=== PATIENT | male | born 1960 | race Caucasian/White ===

== ENCOUNTER 2020-05-27 12:20 | Inpatient (IN) | payer MEDICAID ==
[~2020-05-27] VITALS: Ht 175.3 cm; Wt 86.9 kg
[2020-05-27 13:10] VITALS: BP 113/70
[2020-05-27] MEDS ORDERED: METHYL SALICYLATE/MENTHOL TOPICAL OINTMENT 57GM TUBE. TP PRN (13:15)
[2020-05-27] MEDS ORDERED: MAGNESIUM HYDROXIDE 2,400 MG/30 ML ORAL.SUSP. PO PRN (13:15)
[2020-05-27] MEDS ORDERED: MAG HYDROX/AL HYDROX/SIMETH 30 ML ORAL.SUSP PO PRN (13:15)
[2020-05-27] MEDS ORDERED: ACETAMINOPHEN 325 MG TABLET PO PRN (13:15)
[2020-05-27] MEDS ORDERED: METO25TA4 PO (13:27)
[2020-05-27] MEDS ORDERED: ESCITALOPRAM OX20 MG PO (13:27)
[2020-05-27] MEDS ORDERED: CLOP75TA PO (13:27)
[2020-05-27] MEDS ORDERED: LURA20TA PO (13:27)
[2020-05-27] MEDS ORDERED: ASCO500C9 PO (13:27)
[2020-05-27] MEDS ORDERED: TRAZ-125 PO (13:27)
[2020-05-27] MEDS ORDERED: VALP250S3 PO (13:27)
[2020-05-27] MEDS ORDERED: GABA-586 PO (13:27)
[2020-05-27] MEDS ORDERED: LISI40TA6 PO (13:27)
[2020-05-27] MEDS ORDERED: HYDR-2765 PO (13:27)
[2020-05-27] MEDS ORDERED: MULT-471 PO (13:27)
[2020-05-27] MEDS ORDERED: TAMS0.4C97 PO (13:27)
[2020-05-27 16:11] VITALS: BP 155/71
[2020-05-27 16:56] LABS: BASO # 0.1 x10^3/uL (0.0-0.2); BASO % 1 % (0-3); EOS # 0.3 x10^3/uL (0.0-0.7); EOS % 3 % (0-3); HEMATOCRIT 43.5 % (39.0-53.0); HEMOGLOBIN 14.2 g/dL (13.0-17.5); LYMPH % 18 % (24-48); MEAN CORPUSCULAR HEMOGLOBIN 30 pg (25-35); MEAN CORPUSCULAR HGB CONC 33 g/dL (31-37); MEAN CORPUSCULAR VOLUME 93 fL (79-100); MONO % 9 % (0-9); NEUT # 7.7 x10^3uL (1.8-7.7); NEUT % 70 % (31-73); PLATELET COUNT 270 x10^3/uL (140-400); RED BLOOD COUNT 4.68 x10^6/uL (4.30-5.70); WHITE BLOOD COUNT 11.1 x10^3/uL (4.0-11.0)
--- NOTE | 2020-05-27 17:02 | EKG ---
[address] [address] Test Date: 2020-05-27 Test Time: 17:01:21 Pat Name: DAWNA HERNANDEZ Department: Room: [address] [place] [address] Gender: M Cleaner Assistant: : 1960 Requested By: CHRIS TORRES Order Number: [id number] Reading MD: Measurements Intervals Craig Rate: P: HI: QRS: QRSD: T: QT: QTc: Interpretive Statements
[2020-05-27 17:05] LABS: ALBUMIN 3.3 g/dL (3.4-5.0); ALBUMIN/GLOBULIN RATIO 0.8 (1.0-1.7); CALCIUM 9.8 mg/dL (8.5-10.1); CREATININE 1.2 mg/dL (0.7-1.3); GFR 61.6; POTASSIUM 4.8 mmol/L (3.5-5.1); TOTAL BILIRUBIN 0.2 mg/dL (0.2-1.0); TOTAL PROTEIN 7.7 g/dL (6.4-8.2)
--- NOTE | 2020-05-27 20:48 | PDOC ---
Exam Note: Valerio Note: Please also refer to the separate dictated note~for this date of service dictated separately.~Patient seen individually. Discussed the patient with Nursing staff reviewed the chart.~Reviewed interim history and current functioning. Reviewed vital signs,~Labs/ Radiology~and current medications noted below. Continue current treatment with the changes noted in the dictated addendum note Assessment: Vital Signs/I&O: Vital Signs Date Time Temp Pulse Resp B/P (MAP) Pulse Ox O2 Delivery O2 Flow Rate FiO2 05/27/20 16:11 97.5 81 18 155/71 (99) 95 Room Air Labs: Laboratory Tests Test 05/27/20 16:30 White Blood Count 11.1 x10^3/uL (4.0-11.0) H Red Blood Count 4.68 x10^6/uL (4.30-5.70) Hemoglobin 14.2 g/dL (13.0-17.5) Hematocrit 43.5 % (39.0-53.0) Mean Corpuscular Volume 93 fL (79-100) Mean Corpuscular Hemoglobin 30 pg (25-35) Mean Corpuscular Hemoglobin Concent 33 g/dL (31-37) Red Cell Distribution Width 14.0 % (11.5-14.5) Platelet Count 270 x10^3/uL (140-400) Neutrophils (%) (Auto) 70 % (31-73) Lymphocytes (%) (Auto) 18 % (24-48) L Monocytes (%) (Auto) 9 % (0-9) Eosinophils (%) (Auto) 3 % (0-3) Basophils (%) (Auto) 1 % (0-3) Neutrophils # (Auto) 7.7 x10^3uL (1.8-7.7) Lymphocytes # (Auto) 2.0 x10^3/uL (1.0-4.8) Monocytes # (Auto) 1.0 x10^3/uL (0.0-1.1) Eosinophils # (Auto) 0.3 x10^3/uL (0.0-0.7) Basophils # (Auto) 0.1 x10^3/uL (0.0-0.2) D-Dimer (Izabel) 1.09 mg/L (0.00-0.50) H Sodium Level 140 mmol/L (136-145) Potassium Level 4.8 mmol/L (3.5-5.1) Chloride Level 105 mmol/L (98-107) Carbon Dioxide Level 25 mmol/L (21-32) Anion Gap 10 (6-14) Blood Urea Nitrogen 28 mg/dL (8-26) H Creatinine 1.2 mg/dL (0.7-1.3) Estimated GFR (Cockcroft-Gault) 61.6 BUN/Creatinine Ratio 23 (6-20) H Glucose Level 151 mg/dL (70-99) H Calcium Level 9.8 mg/dL (8.5-10.1) Magnesium Level 2.0 mg/dL (1.8-2.4) Total Bilirubin 0.2 mg/dL (0.2-1.0) Aspartate Amino Transferase (AST) 11 U/L (15-37) L Alanine Aminotransferase (ALT) 26 U/L (16-63) Alkaline Phosphatase 107 U/L (46-116) Total Protein 7.7 g/dL (6.4-8.2) Albumin 3.3 g/dL (3.4-5.0) L Albumin/Globulin Ratio 0.8 (1.0-1.7) L Current Medications: Meds: Laboratory Tests Test 05/27/20 16:30 White Blood Count 11.1 x10^3/uL Red Blood Count 4.68 x10^6/uL Hemoglobin 14.2 g/dL Hematocrit 43.5 % Mean Corpuscular Volume 93 fL Mean Corpuscular Hemoglobin 30 pg Mean Corpuscular Hemoglobin Concent 33 g/dL Red Cell Distribution Width 14.0 % Platelet Count 270 x10^3/uL Neutrophils (%) (Auto) 70 % Lymphocytes (%) (Auto) 18 % Monocytes (%) (Auto) 9 % Eosinophils (%) (Auto) 3 % Basophils (%) (Auto) 1 % Neutrophils # (Auto) 7.7 x10^3uL Lymphocytes # (Auto) 2.0 x10^3/uL Monocytes # (Auto) 1.0 x10^3/uL Eosinophils # (Auto) 0.3 x10^3/uL Basophils # (Auto) 0.1 x10^3/uL D-Dimer (Izabel) 1.09 mg/L Sodium Level 140 mmol/L Potassium Level 4.8 mmol/L Chloride Level 105 mmol/L Carbon Dioxide Level 25 mmol/L Anion Gap 10 Blood Urea Nitrogen 28 mg/dL Creatinine 1.2 mg/dL Estimated GFR (Cockcroft-Gault) 61.6 BUN/Creatinine Ratio 23 Glucose Level 151 mg/dL Calcium Level 9.8 mg/dL Magnesium Level 2.0 mg/dL Total Bilirubin 0.2 mg/dL Aspartate Amino Transf (AST/SGOT) 11 U/L Alanine Aminotransferase (ALT/SGPT) 26 U/L Alkaline Phosphatase 107 U/L Total Protein 7.7 g/dL Albumin 3.3 g/dL Albumin/Globulin Ratio 0.8 Current Medications Medications (Trade) Dose Ordered Sig/Radha Route PRN Reason Start Time Stop Time Status Last Admin Dose Admin Acetaminophen (Tylenol) 650 mg PRN Q6HRS PRN PO MILD PAIN / TEMP > 100.3'F 05/27/20 13:15 Multi-Ingredient Ointment (Analgesic [place]) 1 prateek PRN QID PRN TP MUSCLE PAIN 05/27/20 13:15 Al Hydroxide/Mg Hydroxide (Mylanta Plus Xs) 15 ml PRN AFTMEALHC PRN PO DYSPEPSIA 05/27/20 13:15 Magnesium Hydroxide (Milk Of Magnesia) 2,400 mg PRN QHS PRN PO CONSTIPATION 05/27/20 13:15 Nicotine (Nicoderm Cq 7mg Patch) 1 patch DAILY TD 05/28/20 09:00 Clopidogrel Bisulfate (Plavix) 75 mg DAILY PO 05/28/20 09:00 UNV Gabapentin (Neurontin) 300 mg TID PO 05/27/20 21:00 UNV Acetaminophen/ Hydrocodone Bitart (Lortab 7.5/325) 1 tab PRN Q6HRS PRN PO PAIN 05/27/20 20:45 UNV Metoprolol Tartrate (Lopressor) 25 mg BID PO 05/27/20 21:00 UNV Tamsulosin HCl (Flomax) 0.4 mg DAILY PO 05/28/20 09:00 UNV Trazodone HCl (Desyrel) 100 mg QHS PO 05/27/20 21:00 UNV Non-Formulary Medication (Ascorbic Acid (Vitamin C)) 500 mg BID PRN PO daily 05/27/20 20:45 UNV Non-Formulary Medication (Escitalopram Oxalate ) 20 mg DAILY PO 05/28/20 09:00 UNV Non-Formulary Medication (Lisinopril ) 40 mg DAILY PO 05/28/20 09:00 UNV Non-Formulary Medication (Lurasidone Hcl (Latuda)) 20 mg DAILY PO 05/28/20 09:00 UNV Non-Formulary Medication (Multivitamin W/ Iron, Minerals (Multivitamins With Iron)) 1 tab DAILY PO 05/28/20 09:00 UNV Non-Formulary Medication (Valproate Sodium (Valproic Acid)) 250 mg QAM PO 05/28/20 09:00 UNV I have reviewed the current psychotropics carefully including drug interactions. Risk benefit ratio favors no change other than as noted in my dictated progress note. CHRIS TORRES MD May 27, 2020 20:48
[2020-05-27] MEDS: ASCORBIC ACID 500 MG TABLET PO SCH (21:17)
[2020-05-27] MEDS: METOPROLOL TART IMMED RELEASE 25 MG TABLET. PO SCH (21:17)
[2020-05-27] MEDS: GABAPENTIN 300 MG CAPSULE. PO SCH (21:17)
[2020-05-27] MEDS: traZODone 100 MG TABLET. PO SCH (21:17)
[2020-05-27] MEDS: HYDROcodone/APAP 7.5/325MG 1 TAB TABLET PO PRN (21:34)
[2020-05-28 02:07] LABS: HEMOGLOBIN A1C 7.5 % (4.8-5.6)
[2020-05-28 03:07] LABS: THYROXINE 6.7 ug/dL (4.5-12.0)
[2020-05-28 06:21] VITALS: BP 120/46
[2020-05-28 07:03] LABS: BILIRUBIN,URINE NEG (NEG); CLARITY,URINE TURBID; COLOR,URINE YELLOW; GLUCOSE,URINE NEG (NEG)
[2020-05-28 07:04] LABS: BACTERIA,URINE MANY /HPF (0-FEW); NITRITE,URINE NEG (NEG); SQUAMOUS EPITHELIAL CELL,UR OCC /LPF; UROBILINOGEN,URINE 0.2 mg/dL (0.2 mg/dL); WBC,URINE 20-40 /HPF (0-4)
[2020-05-28] MEDS: LURASIDONE 40 MG TABLET. PO SCH (10:43)
[2020-05-28] MEDS: TAMSULOSIN 0.4 MG CAP.ER.24H. PO SCH (10:48)
[2020-05-28] MEDS: NICOTINE 7MG PATCH. TD SCH (10:48)
[2020-05-28] MEDS: GABAPENTIN 300 MG CAPSULE. PO SCH ×3 (10:48→20:04)
[2020-05-28] MEDS: VALPROIC ACID 250 MG CAPSULE. PO SCH (10:48)
[2020-05-28] MEDS: ASCORBIC ACID 500 MG TABLET PO SCH ×2 (10:48→20:04)
[2020-05-28] MEDS: LISINOPRIL 20 MG TABLET PO SCH (10:49)
[2020-05-28] MEDS: MULTIVITAMIN with MINERAL TABLET. PO SCH (10:49)
[2020-05-28] MEDS: METOPROLOL TART IMMED RELEASE 25 MG TABLET. PO SCH ×2 (10:49→20:05)
[2020-05-28] MEDS: CITALOPRAM 20 MG TABLET. PO SCH (10:49)
[2020-05-28] MEDS: CLOPIDOGREL BISULFATE 75 MG TABLET PO SCH (10:49)
--- NOTE | 2020-05-28 11:32 | CONS ---
DATE OF CONSULTATION: 05/28/2020 ATTENDING PHYSICIANS: Dr. Delgado and Dr. Ibarra. HISTORY OF PRESENT ILLNESS: We are asked to see this patient for medical consultation. The patient is a 59-year-old gentleman, currently a long term resident in [facility] in [place]. He has had suicidal ideations of wanting to kill himself, but no obvious plans. He has underlying bipolar disorder. He was sent here for evaluation and adjustment of medication. PAST MEDICAL HISTORY: He has significant peripheral vascular disease. He has a right fface-[id number]-[id number] amputation. He also has amputation of the second, third and fourth finger of the right hand and significant peripheral vascular disease with previous femoral artery bypass of the left leg. He also has type 2 diabetes, hypertension, and dysphagia along with COPD. He had been a smoker. ALLERGIES: HE HAS ALLERGIES TO CODEINE, EXACT REACTION IS UNCLEAR. MEDICATIONS: Current medicines from the long term include vitamin C, Plavix, Lexapro, Neurontin, hydrocodone, lisinopril, Latuda, metoprolol, multivitamin, Flomax, trazodone and Depakote. SOCIAL HISTORY: Smoking history as noted. PAST SURGICAL HISTORY: As noted. FAMILY HISTORY: Unobtainable due to the patient's memory. REVIEW OF SYSTEMS: Significant for the suicidal ideation without any plan. No COVID exposure. All other systems reviewed and turned to be negative. PHYSICAL EXAMINATION: GENERAL: When I saw him, this is a pleasant gentleman in no acute distress. INITIAL VITAL SIGNS: Showed a blood pressure of 155/71 mmHg, pulse is 81 and regular, temperature 97.5 degrees Fahrenheit, oxygen saturation 94% on room air. HEENT: Head is without trauma. Pupils are reactive. Sclerae are nonicteric. The oropharynx is clear. NECK: Supple, no bruits. No stridor. LUNGS: Otherwise clear. CARDIOVASCULAR: Showed regular heart tones. No gallops. ABDOMEN: Soft, scaphoid, nontender, no organomegaly. Bowel sounds are normoactive. EXTREMITIES: Showed surgical absence of the right leg. He has a right fjyhe-[id number] amputation. The stump is clean and wound is intact. The left leg shows significant stasis dermatitis. There is decreased circulation and muscle atrophy below the ankle. SKIN: Otherwise, warm and dry. There is also surgical absence of the second, third and fourth fingers of the right hand. PERTINENT LABORATORY STUDIES: His hemoglobin on admission was 14.2 g/dL with a white count of 11,100. Electrolytes are within normal range. Creatinine is 1.2 mg/dL, nonfasting blood sugar 151 with a hemoglobin A1c of 7.5. Transaminases and liver panel all within normal range. ASSESSMENT: 1. This 59-year-old gentleman has schizoaffective disorder, bipolar issues. 2. Suicidal ideation without plans. 3. Severe peripheral vascular disease. 4. Previous ohvat-xhc-jqtj amputation of the right. 5. 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 6. Chronic obstructive pulmonary disease from tobacco addiction. 7. Type 2 diabetes. RECOMMENDATIONS: 1. The patient's meds have been reviewed. 2. He is stable from a medical standpoint. I would make no changes on his meds. 3. We should gladly follow along closely during his inpatient stay. Thank you again for asking me to see this patient for medical consultation. ALEXANDRO IBARRA MD DR: NUNO/mushtaq JOB#: [id number] / [id number]
[2020-05-28 11:54] LABS: THYROID STIM HORMONE (TSH) 1.01 uIU/mL (0.358-3.740)
[2020-05-28 16:13] VITALS: BP 109/73
[2020-05-28] MEDS: traZODone 100 MG TABLET. PO SCH (20:04)
--- NOTE | 2020-05-28 21:27 | PDOC ---
Exam Note: Valerio Note: Please also refer to the separate dictated note~for this date of service dictated separately.~Patient seen individually. Discussed the patient with Nursing staff reviewed the chart.~Reviewed interim history and current functioning. Reviewed vital signs,~Labs/ Radiology~and current medications noted below. Continue current treatment with the changes noted in the dictated addendum note Assessment: Vital Signs/I&O: Vital Signs Date Time Temp Pulse Resp B/P (MAP) Pulse Ox O2 Delivery O2 Flow Rate FiO2 05/28/20 20:05 72 110/68 05/28/20 16:13 97.4 22 98 05/28/20 06:21 Room Air I & O 05/27/20 05/27/20 05/28/20 15:00 23:00 07:00 Intake Total 0 ml Balance 0 ml Labs: Laboratory Tests Test 05/28/20 05:30 Urine Collection Type Unknown Urine Color Yellow Urine Clarity Turbid Urine pH 6.5 Urine Specific [place] 1.020 Urine Protein 100 mg/dl (NEG-TRACE) Urine Glucose (UA) Neg mg/dL (NEG) Urine Ketones (Stick) Neg mg/dL (NEG) Urine Blood Mod (NEG) Urine Nitrite Neg (NEG) Urine Bilirubin Neg (NEG) Urine Urobilinogen Dipstick 0.2 mg/dL (0.2 mg/dL) Urine Leukocyte Esterase Large (NEG) Urine RBC 6-10 /HPF (0-2) Urine WBC 20-40 /HPF (0-4) Urine Squamous Epithelial Cells Occ /LPF Urine Bacteria Many /HPF (0-FEW) Urine Mucus Slight /LPF Current Medications: Meds: Current Medications Medications (Trade) Dose Ordered Sig/Radha Route PRN Reason Start Time Stop Time Status Last Admin Dose Admin Nicotine (Nicoderm Cq 7mg Patch) 1 patch DAILY TD 05/28/20 09:00 05/28/20 10:48 Clopidogrel Bisulfate (Plavix) 75 mg DAILY PO 05/28/20 09:00 05/28/20 10:49 Tamsulosin HCl (Flomax) 0.4 mg DAILY PO 05/28/20 09:00 05/28/20 10:48 Citalopram Hydrobromide (CeleXA) 40 mg DAILY PO 05/28/20 09:00 05/28/20 10:49 Lisinopril (Prinivil) 40 mg DAILY PO 05/28/20 09:00 05/28/20 10:49 Lurasidone HCl (Latuda) 20 mg DAILYWBKFT PO 05/28/20 08:00 05/28/20 10:43 Multivitamins/ Calcium (Thera-M Plus) 1 tab DAILY PO 05/28/20 09:00 05/28/20 10:49 Valproic Acid (Depakene) 250 mg QAM PO 05/28/20 09:00 05/28/20 10:48 I have reviewed the current psychotropics carefully including drug interactions. Risk benefit ratio favors no change other than as noted in my dictated progress note. CHRIS TORRES MD May 28, 2020 21:27
--- NOTE | 2020-05-28 22:59 | HP ---
ADMIT DATE: 05/27/2020 PSYCHIATRIC ADMISSION HISTORY/EVALUATION This late entry date of service 05/27/2020 covers elements not covered in my initial note. SUBJECTIVE: I met with the patient evening of 05/27/2020 for this evaluation. IDENTIFYING DATA: The patient is a 59-year-old male, referred to us from [facility] by Dr. Manuel De Paz, his primary care physician, on account of worsening symptoms of depression and expressing suicidal thoughts and wanting to kill himself, but without any specific plan. The patient reportedly states he does not like where he is living. He is depressed. He has been agitated, having sleep and appetite changes. He has failed outpatient psychiatric interventions resulting in this referral. I met with him evening of 05/27/2020 for this evaluation. CHIEF COMPLAINT: "It has been very frustrating. I have had 5 strokes." The patient has significant speech problems, status post CVA. HISTORY OF PRESENT ILLNESS: The patient reportedly has been living at the above facility for some time, recently getting more depressed, helpless, hopeless, worthless, angry, irritable with sleep and appetite changes and suicidal ideation as noted above. No homicidal ideation. No clear psychotic symptoms. No clear symptoms of bipolar disorder. He has had some short-term memory deficits, but much of the confusion appears to be exacerbated by his difficulty communicating due to speech deficits secondary to CVA. PAST PSYCHIATRIC HISTORY: As above. MEDICAL HISTORY: Positive for COPD, depression, status post CVA, type 2 diabetes mellitus, dysphagia, hypertension, amputation right above knee and third and fourth finger on the right hand, BPH, history of hepatitis C. ACCU-CHEKS: None. CODE STATUS: Full code. ALLERGIES: CODEINE. DIET: Dysphagia to nectar thickened diabetic diet initiated post-speech therapy consult following admission. Takes medications whole, but they will need to be crushed, ambulates in wheelchair, maximum assist. CURRENT PSYCHOTROPICS: Mrad was reviewed. FAMILY HISTORY: Noncontributory. SOCIAL HISTORY: No alcohol, drug abuse, physical, sexual or elder abuse history is noted. He is not known to be a perpetrator. The patient states he was born and raised in [place], [place] and was brought to the [facility] by his brother approximately 17 years ago. 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 No CV, , pulmonary system symptoms on review. MENTAL STATUS EXAMINATION: The patient was seen individually evening of 05/27/2020 in his room at length. He is oriented to himself and situation. Speech very difficult to understand. Abstraction fair, computation impaired, language function intact. Mood and affect is depressed. He denied active suicidal ideation. LABORATORY DATA: Reviewed. IMPRESSION: Major depressive disorder, recurrent, severe; anxiety disorder, unspecified; mild cognitive impairment; impulse control disorder. Rest as above. PLAN: Admit to Geropsychiatry Unit at [facility]. I will see the patient daily individually from a psychiatric standpoint. Medical followup with Dr. Jasso/Dr. Guerrero. Continue the patient on his current psychotropics. Obtain past psychiatric records, possibly initiate treatment on Zoloft or Wellbutrin. We will make further decisions post baseline assessment. ESTIMATED LENGTH OF STAY: 10-12 days. DISPOSITION: Back to [facility] when stable. CHRIS TORRES MD DR: GAYLE/mushtaq JOB#: [id number] / [id number]
--- NOTE | 2020-05-28 23:50 | PN ---
DATE: 05/28/2020 PSYCHIATRIC PROGRESS NOTE This note covers elements not covered in my initial note 05/28. SUBJECTIVE: The patient was seen individually evening of 05/28. Per nursing report by BAR Echols, the patient was quite labile in his mood in the mornings, somewhat abrasive. It took 3 staff members to take him to the bathroom. He spit out his Seroquel. In the afternoon, he was doing better and more cooperative. He has had some aspiration of his sputum. Speech consult suggested thickened liquids and pureed diet and meds to be crushed which we will initiate. REVIEW OF SYSTEMS: Ambulation impaired. No CV, , pulmonary, eye system symptoms on review. MENTAL STATUS EXAMINATION: The patient is oriented to himself and situation. Speech is difficult to understand due to his speech deficits. Abstraction fair, computation impaired, language function intact, attention span short. Mood and affect is depressed. No active suicidal ideation. LABORATORY DATA: Reviewed. IMPRESSION: Major depressive disorder, recurrent; anxiety disorder, unspecified; mild cognitive impairment. PLAN: Continue current psychotropics. We will try and minimize the addition of antipsychotics given his swallowing deficits, but we will assess daily and then decide. CHRIS TORRES MD DR: GAYLE/mushtaq JOB#: [id number] / [id number]
[2020-05-29 06:29] VITALS: BP 121/81
[2020-05-29] MEDS: TAMSULOSIN 0.4 MG CAP.ER.24H. PO SCH (08:35)
[2020-05-29] MEDS: LISINOPRIL 20 MG TABLET PO SCH (08:36)
[2020-05-29] MEDS: ASCORBIC ACID 500 MG TABLET PO SCH ×2 (08:36→20:18)
[2020-05-29] MEDS: METOPROLOL TART IMMED RELEASE 25 MG TABLET. PO SCH ×2 (08:36→20:18)
[2020-05-29] MEDS: LURASIDONE 40 MG TABLET. PO SCH (08:36)
[2020-05-29] MEDS: NICOTINE 7MG PATCH. TD SCH (08:36)
[2020-05-29] MEDS: MULTIVITAMIN with MINERAL TABLET. PO SCH (08:36)
[2020-05-29] MEDS: CLOPIDOGREL BISULFATE 75 MG TABLET PO SCH (08:36)
[2020-05-29] MEDS: VALPROIC ACID 250 MG CAPSULE. PO SCH (08:36)
[2020-05-29] MEDS: CITALOPRAM 20 MG TABLET. PO SCH (08:36)
[2020-05-29] MEDS: GABAPENTIN 300 MG CAPSULE. PO SCH ×3 (08:36→20:21)
[2020-05-29 16:11] VITALS: BP 103/65
[2020-05-29 16:13] VITALS: BP 114/62
[2020-05-29] MEDS: traZODone 100 MG TABLET. PO SCH (20:18)
[2020-05-29] MEDS: SERTRALINE 50 MG TABLET. PO SCH (20:21)
--- NOTE | 2020-05-29 21:03 | PDOC ---
Exam Note: Valerio Note: Please also refer to the separate dictated note~for this date of service dictated separately.~Patient seen individually. Discussed the patient with Nursing staff reviewed the chart.~Reviewed interim history and current functioning. Reviewed vital signs,~Labs/ Radiology~and current medications noted below. Continue current treatment with the changes noted in the dictated addendum note Assessment: Vital Signs/I&O: Vital Signs Date Time Temp Pulse Resp B/P (MAP) Pulse Ox O2 Delivery O2 Flow Rate FiO2 05/29/20 20:18 88 114/62 05/29/20 16:13 97.4 18 94 Room Air 05/29/20 06:29 2.0 I & O 05/28/20 05/28/20 05/29/20 15:00 23:00 07:00 Intake Total 240 ml 480 ml Balance 240 ml 480 ml Current Medications: Meds: Current Medications Medications (Trade) Dose Ordered Sig/Radha Route PRN Reason Start Time Stop Time Status Last Admin Dose Admin Sertraline HCl (Zoloft) 50 mg QHS PO 05/29/20 21:00 05/29/20 20:21 I have reviewed the current psychotropics carefully including drug interactions. Risk benefit ratio favors no change other than as noted in my dictated progress note. Diagnosis: Problems: (1) Major depressive disorder (2) Mild cognitive impairment with memory loss (3) Anxiety disorder, unspecified (4) Impulse control disorder CHRIS TORRES MD May 29, 2020 21:03
[2020-05-30 06:14] LABS: VAL ACID 10 mcg/mL (50-100)
[2020-05-30 06:22] VITALS: BP 103/68
--- NOTE | 2020-05-30 08:28 | PDOC ---
Exam Note: Valerio Note: This note is a late entry for 05/29/2020 covers elements not covered in my initial note. Subjective: The patient was seen individually in the evening of 05/29/2020 with Phil DINERO, discussed and reviewed the chart. He slept 8-3/4 hours previous night. The patient has been depressed. UA is contaminated. We will repeat it. Valproic acid level will be checked. Review of Systems: Ambulation impaired. He was lying in bed eating his boxed supper late in the evening later than others but did not want to have his apple cobbler which I offered him. No CV, , pulmonary, eye, ENT system symptoms on review. He does have disabilities consequent to the CVA. Mental Status Exam: The patient is oriented to himself. Speech is difficult to understand due to dysarthria. Abstraction is fair. Computation is impaired. Language function is intact. Mood and affect depressed. Laboratory Data: Reviewed. Impression: Major depressive disorder, recurrent, severe. Mild cognitive impairment. Anxiety disorder unspecified. Impulse control disorder unspecified. Plan: Continue trazodone 100 mg h.s., gabapentin 300 mg b.i.d., Latuda 20 mg a day. Change Celexa 40 mg a day to Zoloft 50mg a day. Start Depakote 250 mg daily, which he has been taking for a couple of days. Check valproic acid level. Adjust as clinically indicated. Assessment: Vital Signs/I&O: Vital Signs Date Time Temp Pulse Resp B/P (MAP) Pulse Ox O2 Delivery O2 Flow Rate FiO2 05/30/20 06:22 97.6 75 16 103/68 (80) 93 Room Air 05/29/20 06:29 2.0 I & O 05/29/20 05/29/20 05/30/20 15:00 23:00 07:00 Intake Total 360 ml 120 ml Balance 360 ml 120 ml Labs: Laboratory Tests Test 05/30/20 05:44 Valproic Acid Level 10 mcg/mL (50-100) L Valproic Acid Last Dose Date 05/29/2020 Valproic Acid Last Dose Time 0900 Current Medications: Meds: Current Medications Medications (Trade) Dose Ordered Sig/Radha Route PRN Reason Start Time Stop Time Status Last Admin Dose Admin Sertraline HCl (Zoloft) 50 mg QHS PO 05/29/20:00 05/29/20 20:21 I have reviewed the current psychotropics carefully including drug interactions. Risk benefit ratio favors no change other than as noted in my dictated progress note. Diagnosis: Problems: (1) Major depressive disorder (2) Impulse control disorder (3) Mild cognitive impairment with memory loss (4) Anxiety disorder, unspecified CHRIS TORRES MD May 30, 2020 08:28
[2020-05-30] MEDS: VALPROIC ACID 250 MG CAPSULE. PO SCH (08:54)
[2020-05-30] MEDS: TAMSULOSIN 0.4 MG CAP.ER.24H. PO SCH (08:54)
[2020-05-30] MEDS: LURASIDONE 40 MG TABLET. PO SCH (08:54)
[2020-05-30] MEDS: GABAPENTIN 300 MG CAPSULE. PO SCH ×3 (08:54→19:41)
[2020-05-30] MEDS: METOPROLOL TART IMMED RELEASE 25 MG TABLET. PO SCH ×2 (08:54→19:42)
[2020-05-30] MEDS: ASCORBIC ACID 500 MG TABLET PO SCH ×2 (08:55→19:41)
[2020-05-30] MEDS: MULTIVITAMIN with MINERAL TABLET. PO SCH (08:55)
[2020-05-30] MEDS: CLOPIDOGREL BISULFATE 75 MG TABLET PO SCH (08:55)
[2020-05-30] MEDS: NICOTINE 7MG PATCH. TD SCH ×2 (08:55→08:56)
[2020-05-30] MEDS: LISINOPRIL 20 MG TABLET PO SCH (08:55)
[2020-05-30] MEDS: HYDROcodone/APAP 7.5/325MG 1 TAB TABLET PO PRN (09:07)
[2020-05-30 13:51] LABS: BACTERIA,URINE FEW /HPF (0-FEW); BILIRUBIN,URINE NEG (NEG); CLARITY,URINE TURBID; COLOR,URINE YELLOW; GLUCOSE,URINE NEG (NEG); NITRITE,URINE POS (NEG); RBC,URINE 20-40 /HPF (0-2); UROBILINOGEN,URINE 0.2 mg/dL (0.2 mg/dL); WBC,URINE >40 /HPF (0-4)
[2020-05-30 16:08] VITALS: BP 128/54
[2020-05-30] MEDS: SERTRALINE 50 MG TABLET. PO SCH (19:41)
[2020-05-30] MEDS: traZODone 100 MG TABLET. PO SCH (19:41)
[2020-05-30 19:57] VITALS: BP 112/62
--- NOTE | 2020-05-30 21:23 | PDOC ---
Exam Note: Valerio Note: Please also refer to the separate dictated note~for this date of service dictated separately.~Patient seen individually. Discussed the patient with Nursing staff reviewed the chart.~Reviewed interim history and current functioning. Reviewed vital signs,~Labs/ Radiology~and current medications noted below. Continue current treatment with the changes noted in the dictated addendum note Assessment: Vital Signs/I&O: Vital Signs Date Time Temp Pulse Resp B/P (MAP) Pulse Ox O2 Delivery O2 Flow Rate FiO2 05/30/20 19:57 93 112/62 (79) 05/30/20 16:08 98.3 20 94 05/30/20 10:15 Room Air 05/29/20 06:29 2.0 I & O 05/29/20 05/29/20 05/30/20 15:00 23:00 07:00 Intake Total 360 ml 120 ml Balance 360 ml 120 ml Labs: Laboratory Tests Test 05/30/20 05:44 05/30/20 13:00 Valproic Acid Level 10 mcg/mL (50-100) L Valproic Acid Last Dose Date 05/29/2020 Valproic Acid Last Dose Time 0900 Urine Collection Type Unknown Urine Color Yellow Urine Clarity Turbid Urine pH 7.0 Urine Specific [place] 1.020 Urine Protein 100 mg/dl (NEG-TRACE) Urine Glucose (UA) Neg mg/dL (NEG) Urine Ketones (Stick) 40 mg/dL (NEG) Urine Blood Large (NEG) Urine Nitrite Pos (NEG) Urine Bilirubin Neg (NEG) Urine Urobilinogen Dipstick 0.2 mg/dL (0.2 mg/dL) Urine Leukocyte Esterase Large (NEG) Urine RBC 20-40 /HPF (0-2) Urine WBC >40 /HPF (0-4) Urine Squamous Epithelial Cells None /LPF Urine Bacteria Few /HPF (0-FEW) Current Medications: Meds: Laboratory Tests Test 05/30/20 05:44 05/30/20 13:00 Valproic Acid (Depakene) Level 10 mcg/mL Valproic Acid Last Dose Date 05/29/2020 Valproic Acid Last Dose Time 0900 Urine Collection Type Unknown Urine Color Yellow Urine Clarity Turbid Urine pH 7.0 Urine Specific [place] 1.020 Urine Protein 100 mg/dl Urine Glucose (UA) Neg mg/dL Urine Ketones (Stick) 40 mg/dL Urine Blood Large Urine Nitrite Pos Urine Bilirubin Neg Urine Urobilinogen Dipstick 0.2 mg/dL Urine Leukocyte Esterase Large Urine RBC 20-40 /HPF Urine WBC >40 /HPF Urine Squamous Epithelial Cells None /LPF Urine Bacteria Few /HPF Current Medications Medications (Trade) Dose Ordered Sig/Radha Route PRN Reason Start Time Stop Time Status Last Admin Dose Admin Acetaminophen (Tylenol) 650 mg PRN Q6HRS PRN PO MILD PAIN / TEMP > 100.3'F 05/27/20 13:15 05/28/20 20:04 Multi-Ingredient Ointment (Analgesic [place]) 1 prateek PRN QID PRN TP MUSCLE PAIN 05/27/20 13:15 Al Hydroxide/Mg Hydroxide (Mylanta Plus Xs) 15 ml PRN AFTMEALHC PRN PO DYSPEPSIA 05/27/20 13:15 Magnesium Hydroxide (Milk Of Magnesia) 2,400 mg PRN QHS PRN PO CONSTIPATION 05/27/20 13:15 Nicotine (Nicoderm Cq 7mg Patch) 1 patch DAILY TD 05/28/20 09:00 05/29/20 08:36 Clopidogrel Bisulfate (Plavix) 75 mg DAILY PO 05/28/20 09:00 05/30/20 08:55 Gabapentin (Neurontin) 300 mg TID PO 05/27/20 21:00 05/30/20 19:41 Acetaminophen/ Hydrocodone Bitart (Lortab 7.5/325) 1 tab PRN Q6HRS PRN PO PAIN 05/27/20 20:45 05/30/20 09:07 Metoprolol Tartrate (Lopressor) 25 mg BID PO 05/27/20 21:00 05/30/20 19:42 Tamsulosin HCl (Flomax) 0.4 mg DAILY PO 05/28/20 09:00 05/30/20 08:54 Trazodone HCl (Desyrel) 100 mg QHS PO 05/27/20 21:00 05/30/20 19:41 Ascorbic Acid (Vitamin C) 500 mg BID PO 05/27/20 21:00 05/30/20 19:41 Citalopram Hydrobromide (CeleXA) 40 mg DAILY PO 05/28/20 09:00 05/29/20 18:31 DC 05/29/20 08:36 Lisinopril (Prinivil) 40 mg DAILY PO 05/28/20 09:00 05/30/20 08:55 Lurasidone HCl (Latuda) 20 mg DAILYWBKFT PO 05/28/20 08:00 05/30/20 08:54 Multivitamins/ Calcium (Thera-M Plus) 1 tab DAILY PO 05/28/20 09:00 05/30/20 08:55 Valproic Acid (Depakene) 250 mg QAM PO 05/28/20 09:00 05/30/20 08:54 Sertraline HCl (Zoloft) 50 mg QHS PO 05/29/20 21:00 05/30/20 19:41 I have reviewed the current psychotropics carefully including drug interactions. Risk benefit ratio favors no change other than as noted in my dictated progress note. Diagnosis: Problems: (1) Major depressive disorder (2) Impulse control disorder (3) Mild cognitive impairment with memory loss (4) Anxiety disorder, unspecified CHRIS TORRES MD May 30, 2020 21:23
[2020-05-31 06:16] VITALS: BP 121/72
[2020-05-31] MEDS: MULTIVITAMIN with MINERAL TABLET. PO SCH (08:26)
[2020-05-31] MEDS: CLOPIDOGREL BISULFATE 75 MG TABLET PO SCH (08:26)
[2020-05-31] MEDS: ASCORBIC ACID 500 MG TABLET PO SCH ×2 (08:26→19:36)
[2020-05-31] MEDS: TAMSULOSIN 0.4 MG CAP.ER.24H. PO SCH (08:27)
[2020-05-31] MEDS: VALPROIC ACID 250 MG CAPSULE. PO SCH ×2 (08:27→19:36)
[2020-05-31] MEDS: LURASIDONE 40 MG TABLET. PO SCH (08:27)
[2020-05-31] MEDS: GABAPENTIN 300 MG CAPSULE. PO SCH ×3 (08:27→19:35)
[2020-05-31] MEDS: METOPROLOL TART IMMED RELEASE 25 MG TABLET. PO SCH ×2 (08:27→19:36)
[2020-05-31] MEDS: LISINOPRIL 20 MG TABLET PO SCH (08:27)
[2020-05-31] MEDS: NICOTINE 7MG PATCH. TD SCH ×2 (08:28→08:35)
[2020-05-31 16:10] VITALS: BP 116/76
[2020-05-31] MEDS: SERTRALINE 50 MG TABLET. PO SCH (19:36)
[2020-05-31] MEDS: traZODone 100 MG TABLET. PO SCH (19:36)
--- NOTE | 2020-05-31 21:03 | PDOC ---
Exam Note: Valerio Note: This note is a late entry for 05/30/2020 covers elements not covered in my initial note. Subjective: The patient was reviewed in the morning of 05/30/2020 for a treatment team meeting with Maryjane Arana, Edel Ji and [place] (social media marketing manager), Veda, activity therapy and Mark DINERO, discussed and reviewed the chart. He slept 8 hours previous night. The patient remains isolative. He needs a Cassy lift for transfers. He is compliant with his medications. Appetite is 75%. Talala thickened fluids are being changed to honey thickened due to his ongoing aspiration, dysphagia. Valproic acid level is 10 on Depakote. We will increase to 250 mg b.i.d. Check CBC, CMP, valproic acid l evel in 3 days. Review of Systems: Ambulation impaired in wheelchair, difficulty expressing himself. No CV, , pulmonary, eye, ENT system symptoms on review. Mental Status Exam: The patient is oriented to himself. He is pleasant, verbal, interactive, still somewhat depressed, anxious. No suicidal or homicidal ideation. Speech is coherent. Abstraction is fair. Computation is impaired. Language function is intact. Mood and affect depressed. Laboratory Data: Reviewed. Impression: Major depressive disorder, recurrent, severe. Mild cognitive impairment. Anxiety disorder unspecified. Impulse control disorder unspecifie d. Plan: Increase Zoloft from 50 mg a day to 75 mg a day after he has been on 50 mg for 2 days. Maintain Latuda, Depakene and trazodone unchanged. Assessment: Vital Signs/I&O: Vital Signs Date Time Temp Pulse Resp B/P (MAP) Pulse Ox O2 Delivery O2 Flow Rate FiO2 05/31/20 19:36 97 116/76 05/31/20 16:10 98.4 18 97 05/31/20 06:16 Room Air 05/29/20 06:29 2.0 I & O 05/30/20 05/30/20 05/31/20 15:00 23:00 07:00 Intake Total 240 ml 480 ml Balance 240 ml 480 ml Current Medications: Meds: Current Medications Medications (Trade) Dose Ordered Sig/Radha Route PRN Reason Start Time Stop Time Status Last Admin Dose Admin Acetaminophen (Tylenol) 650 mg PRN Q6HRS PRN PO MILD PAIN / TEMP > 100.3'F 05/27/20 13:15 05/28/20 20:04 Multi-Ingredient Ointment (Analgesic [place]) 1 prateek PRN QID PRN TP MUSCLE PAIN 05/27/20 13:15 Al Hydroxide/Mg Hydroxide (Mylanta Plus Xs) 15 ml PRN AFTMEALHC PRN PO DYSPEPSIA 05/27/20 13:15 Magnesium Hydroxide (Milk Of Magnesia) 2,400 mg PRN QHS PRN PO CONSTIPATION 05/27/20 13:15 Nicotine (Nicoderm Cq 7mg Patch) 1 patch DAILY TD 05/28/20 09:00 05/29/20 08:36 Clopidogrel Bisulfate (Plavix) 75 mg DAILY PO 05/28/20 09:00 05/31/20 08:26 Gabapentin (Neurontin) 300 mg TID PO 05/27/20 21:00 05/31/20 19:35 Acetaminophen/ Hydrocodone Bitart (Lortab 7.5/325) 1 tab PRN Q6HRS PRN PO PAIN 05/27/20 20:45 05/30/20 09:07 Metoprolol Tartrate (Lopressor) 25 mg BID PO 05/27/20 21:00 05/31/20 19:36 Tamsulosin HCl (Flomax) 0.4 mg DAILY PO 05/28/20 09:00 05/31/20 08:27 Trazodone HCl (Desyrel) 100 mg QHS PO 05/27/20 21:00 05/31/20 19:36 Ascorbic Acid (Vitamin C) 500 mg BID PO 05/27/20 21:00 05/31/20 19:36 Citalopram Hydrobromide (CeleXA) 40 mg DAILY PO 05/28/20 09:00 05/29/20 18:31 DC 05/29/20 08:36 Lisinopril (Prinivil) 40 mg DAILY PO 05/28/20 09:00 05/31/20 08:27 Lurasidone HCl (Latuda) 20 mg DAILYWBKFT PO 05/28/20 08:00 05/31/20 08:27 Multivitamins/ Calcium (Thera-M Plus) 1 tab DAILY PO 05/28/20 09:00 05/31/20 08:26 Valproic Acid (Depakene) 250 mg QAM PO 05/28/20 09:00 05/31/20 07:02 DC 05/30/20 08:54 Sertraline HCl (Zoloft) 50 mg QHS PO 05/29/20 21:00 05/31/20 07:02 DC 05/30/20 19:41 Sertraline HCl (Zoloft) 75 mg QHS PO 05/31/20 21:00 05/31/20 19:36 Valproic Acid (Depakene) 250 mg BID PO 05/31/20 09:00 05/31/20 19:36 Current Medications Medications (Trade) Dose Ordered Sig/Radha Route PRN Reason Start Time Stop Time Status Last Admin Dose Admin Sertraline HCl (Zoloft) 75 mg QHS PO 05/31/20 21:00 05/31/20 19:36 Valproic Acid (Depakene) 250 mg BID PO 05/31/20 09:00 05/31/20 19:36 I have reviewed the current psychotropics carefully including drug interactions. Risk benefit ratio favors no change other than as noted in my dictated progress note. Diagnosis: Problems: (1) Major depressive disorder (2) Impulse control disorder (3) Mild cognitive impairment with memory loss (4) Anxiety disorder, unspecified CHRIS TORRES MD May 31, 2020 21:03
--- NOTE | 2020-05-31 21:03 | PDOC ---
Exam Note: Valerio Note: Please also refer to the separate dictated note~for this date of service dictated separately.~Patient seen individually. Discussed the patient with Nursing staff reviewed the chart.~Reviewed interim history and current functioning. Reviewed vital signs,~Labs/ Radiology~and current medications noted below. Continue current treatment with the changes noted in the dictated addendum note Assessment: Vital Signs/I&O: Vital Signs Date Time Temp Pulse Resp B/P (MAP) Pulse Ox O2 Delivery O2 Flow Rate FiO2 05/31/20 19:36 97 116/76 05/31/20 16:10 98.4 18 97 05/31/20 06:16 Room Air 05/29/20 06:29 2.0 I & O 05/30/20 05/30/20 05/31/20 15:00 23:00 07:00 Intake Total 240 ml 480 ml Balance 240 ml 480 ml Current Medications: Meds: Current Medications Medications (Trade) Dose Ordered Sig/Radha Route PRN Reason Start Time Stop Time Status Last Admin Dose Admin Sertraline HCl (Zoloft) 75 mg QHS PO 05/31/20 21:00 05/31/20 19:36 Valproic Acid (Depakene) 250 mg BID PO 05/31/20 09:00 05/31/20 19:36 I have reviewed the current psychotropics carefully including drug interactions. Risk benefit ratio favors no change other than as noted in my dictated progress note. Diagnosis: Problems: (1) Major depressive disorder (2) Impulse control disorder (3) Anxiety disorder, unspecified (4) Mild cognitive impairment CHRIS TORRES MD May 31, 2020 21:03
[2020-06-01 06:18] VITALS: BP 93/63
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
[2020-06-01] MEDS: GABAPENTIN 300 MG CAPSULE. PO SCH ×3 (08:13→19:57)
[2020-06-01] MEDS: VALPROIC ACID 250 MG CAPSULE. PO SCH ×2 (08:14→19:57)
[2020-06-01] MEDS: LURASIDONE 40 MG TABLET. PO SCH (08:14)
[2020-06-01] MEDS: MULTIVITAMIN with MINERAL TABLET. PO SCH (08:14)
[2020-06-01] MEDS: ASCORBIC ACID 500 MG TABLET PO SCH ×2 (08:15→19:57)
[2020-06-01] MEDS: CLOPIDOGREL BISULFATE 75 MG TABLET PO SCH (08:15)
[2020-06-01] MEDS: TAMSULOSIN 0.4 MG CAP.ER.24H. PO SCH (08:15)
[2020-06-01] MEDS: NICOTINE 7MG PATCH. TD SCH (08:16)
[2020-06-01] MEDS: METOPROLOL TART IMMED RELEASE 25 MG TABLET. PO SCH ×2 (09:00→19:57)
[2020-06-01] MEDS: LISINOPRIL 20 MG TABLET PO SCH (12:38)
[2020-06-01] MEDS: traZODone 100 MG TABLET. PO SCH (19:56)
[2020-06-01] MEDS: SERTRALINE 50 MG TABLET. PO SCH (19:56)
[2020-06-01] MEDS: CIPROFLOXACIN HCL 500 MG TABLET PO SCH (20:10)
--- NOTE | 2020-06-01 22:48 | PDOC ---
Exam Note: Valerio Note: Please also refer to the separate dictated note~for this date of service dictated separately.~Patient seen individually. Discussed the patient with Nursing staff reviewed the chart.~Reviewed interim history and current functioning. Reviewed vital signs,~Labs/ Radiology~and current medications noted below. Continue current treatment with the changes noted in the dictated addendum note Assessment: Vital Signs/I&O: Vital Signs Date Time Temp Pulse Resp B/P (MAP) Pulse Ox O2 Delivery O2 Flow Rate FiO2 06/01/20 19:57 77 114/77 06/01/20 06:18 97.3 18 94 Room Air 05/29/20 06:29 2.0 I & O 05/31/20 05/31/20 06/01/20 15:00 23:00 07:00 Intake Total 960 ml 600 ml Balance 960 ml 600 ml Current Medications: Meds: Current Medications Medications (Trade) Dose Ordered Sig/Radha Route PRN Reason Start Time Stop Time Status Last Admin Dose Admin Ciprofloxacin (Cipro) 500 mg BID PO 06/01/20 21:00 06/10/20 21:00 06/01/20 20:10 I have reviewed the current psychotropics carefully including drug interactions. Risk benefit ratio favors no change other than as noted in my dictated progress note. Diagnosis: Problems: (1) Major depressive disorder (2) Impulse control disorder (3) Anxiety disorder, unspecified (4) Mild cognitive impairment CHRIS TORRES MD Jun 01, 2020 22:48
[2020-06-01] MEDS ORDERED: CIPR500T2 PO (23:13)
[2020-06-02 05:39] VITALS: BP 100/64
--- NOTE | 2020-06-02 08:01 | PDOC ---
Exam Note: Valerio Note: This note is a late entry for 06/01/2020 covers elements not covered in my initial note. Subjective: The patient was seen individually in the evening of 06/01/2020 with Netta DINERO, discussed and reviewed the chart. He slept 8-1/2 hours previous night. He has had no behaviors, somewhat withdrawn. No suicidal ideation. He does have UTI, started on Cipro for this. Review of Systems: Ambulation impaired in wheelchair. No CV, , pulmonary, eye, ENT system symptoms on review. Mental Status Exam: The patient is oriented to himself and situation. Speech has some latency. Often response is monosyllabic. Abstraction is fair. Computation is impaired. Mood and affect withdrawn. No active suicidal ideation. Laboratory Data: Reviewed. Impression: Major depressive disorder, recurrent, severe. Mild cognitive impairment. Anxiety disorder unspecified. Impulse control disorder unspecified. Plan: No change from initial note. Received communication from [facility] [email or web address] that the patients health insurance may not cover any further stay and he may have to transition to intermediate. Again no suicidal ideation at this time. Assessment: Vital Signs/I&O: Vital Signs Date Time Temp Pulse Resp B/P (MAP) Pulse Ox O2 Delivery O2 Flow Rate FiO2 06/02/20 05:39 97.2 81 24 100/64 (76) 92 Nasal Cannula 3.0 I & O 06/01/20 06/01/20 06/02/20 14:59 22:59 06:59 Intake Total 800 ml 480 ml Balance 800 ml 480 ml Current Medications: Meds: Current Medications Medications (Trade) Dose Ordered Sig/Radha Route PRN Reason Start Time Stop Time Status Last Admin Dose Admin Acetaminophen (Tylenol) 650 mg PRN Q6HRS PRN PO MILD PAIN / TEMP > 100.3'F 05/27/20 13:15 05/28/20 20:04 Multi-Ingredient Ointment (Analgesic [place]) 1 prateek PRN QID PRN TP MUSCLE PAIN 05/27/20 13:15 Al Hydroxide/Mg Hydroxide (Mylanta Plus Xs) 15 ml PRN AFTMEALHC PRN PO DYSPEPSIA 05/27/20 13:15 Magnesium Hydroxide (Milk Of Magnesia) 2,400 mg PRN QHS PRN PO CONSTIPATION 05/27/20 13:15 Nicotine (Nicoderm Cq 7mg Patch) 1 patch DAILY TD 05/28/20 09:00 05/29/20 08:36 Clopidogrel Bisulfate (Plavix) 75 mg DAILY PO 05/28/20 09:00 06/01/20 08:15 Gabapentin (Neurontin) 300 mg TID PO 05/27/20 21:00 06/01/20 19:57 Acetaminophen/ Hydrocodone Bitart (Lortab 7.5/325) 1 tab PRN Q6HRS PRN PO PAIN 05/27/20 20:45 05/30/20 09:07 Metoprolol Tartrate (Lopressor) 25 mg BID PO 05/27/20 21:00 06/01/20 19:57 Tamsulosin HCl (Flomax) 0.4 mg DAILY PO 05/28/20 09:00 06/01/20 08:15 Trazodone HCl (Desyrel) 100 mg QHS PO 05/27/20 21:00 06/01/20 19:56 Ascorbic Acid (Vitamin C) 500 mg BID PO 05/27/20 21:00 06/01/20 19:57 Citalopram Hydrobromide (CeleXA) 40 mg DAILY PO 05/28/20 09:00 05/29/20 18:31 DC 05/29/20 08:36 Lisinopril (Prinivil) 40 mg DAILY PO 05/28/20 09:00 06/01/20 12:38 Lurasidone HCl (Latuda) 20 mg DAILYWBKFT PO 05/28/20 08:00 06/01/20 08:14 Multivitamins/ Calcium (Thera-M Plus) 1 tab DAILY PO 05/28/20 09:00 06/01/20 08:14 Valproic Acid (Depakene) 250 mg QAM PO 05/28/20 09:00 05/31/20 07:02 DC 05/30/20 08:54 Sertraline HCl (Zoloft) 50 mg QHS PO 05/29/20 21:00 05/31/20 07:02 DC 05/30/20 19:41 Sertraline HCl (Zoloft) 75 mg QHS PO 05/31/20 21:00 06/01/20 19:56 Valproic Acid (Depakene) 250 mg BID PO 05/31/20 09:00 06/01/20 19:57 Ciprofloxacin (Cipro) 500 mg BID PO 06/01/20 21:00 06/10/20 21:00 06/01/20 20:10 Current Medications Medications (Trade) Dose Ordered Sig/Radha Route PRN Reason Start Time Stop Time Status Last Admin Dose Admin Ciprofloxacin (Cipro) 500 mg BID PO 06/01/20 21:00 06/10/20 21:00 06/01/20 20:10 I have reviewed the current psychotropics carefully including drug interactions. Risk benefit ratio favors no change other than as noted in my dictated progress note. Diagnosis: Problems: (1) Major depressive disorder (2) Impulse control disorder (3) Mild cognitive impairment with memory loss (4) Anxiety disorder, unspecified (5) Mild cognitive impairment CHRIS TORRES MD Jun 02, 2020 08:01
[2020-06-02] MEDS: NICOTINE 7MG PATCH. TD SCH (09:00)
[2020-06-02] MEDS: LURASIDONE 40 MG TABLET. PO SCH (09:45)
[2020-06-02] MEDS: VALPROIC ACID 250 MG CAPSULE. PO SCH (09:45)
[2020-06-02] MEDS: MULTIVITAMIN with MINERAL TABLET. PO SCH (09:46)
[2020-06-02] MEDS: GABAPENTIN 300 MG CAPSULE. PO SCH ×2 (09:46→13:23)
[2020-06-02] MEDS: TAMSULOSIN 0.4 MG CAP.ER.24H. PO SCH (09:46)
[2020-06-02] MEDS: CIPROFLOXACIN HCL 500 MG TABLET PO SCH (09:46)
[2020-06-02] MEDS: CLOPIDOGREL BISULFATE 75 MG TABLET PO SCH (09:47)
[2020-06-02] MEDS: ASCORBIC ACID 500 MG TABLET PO SCH (09:48)
[2020-06-02] MEDS: HYDROcodone/APAP 7.5/325MG 1 TAB TABLET PO PRN (10:38)
[2020-06-02] MEDS: METOPROLOL TART IMMED RELEASE 25 MG TABLET. PO SCH (10:40)
[2020-06-02 10:41] VITALS: BP 134/66
[2020-06-02] MEDS: LISINOPRIL 20 MG TABLET PO SCH (10:41)
[2020-06-02] MEDS ORDERED: ACET325T21 PO (13:45)
[2020-06-02] MEDS ORDERED: MAG-124 PO (13:47)
[2020-06-02] MEDS ORDERED: MAGN24003 PO (13:48)
[2020-06-02] MEDS ORDERED: METH57CR17 TP (13:49)
[2020-06-02] MEDS ORDERED: NICO1PAT27 TD (13:50)
[2020-06-02] MEDS ORDERED: SERT50TA PO (13:53)
[2020-06-02] MEDS ORDERED: LACTOBACILLUS RHAMNOSUS GG 1 CAPSULE. PO SCH (21:00)
--- NOTE | 2020-06-02 21:06 | PDOC ---
Exam Note: Valerio Note: Please also refer to the separate dictated note~for this date of service dictated separately.~Patient seen individually. Discussed the patient with Nursing staff reviewed the chart.~Reviewed interim history and current functioning. Reviewed vital signs,~Labs/ Radiology~and current medications noted below. Continue current treatment with the changes noted in the dictated addendum note Assessment: Vital Signs/I&O: Vital Signs Date Time Temp Pulse Resp B/P (MAP) Pulse Ox O2 Delivery O2 Flow Rate FiO2 06/02/20 12:00 92 06/02/20 10:41 73 134/66 06/02/20 05:39 97.2 24 Nasal Cannula 3.0 I & O 0 06/01/20 06/01/20 06/02/20 15:00 23:00 07:00 Intake Total 800 ml 480 ml Balance 800 ml 480 ml Current Medications: Meds: Current Medications Medications (Trade) Dose Ordered Sig/Radha Route PRN Reason Start Time Stop Time Status Last Admin Dose Admin Acetaminophen (Tylenol) 650 mg PRN Q6HRS PRN PO MILD PAIN / TEMP > 100.3'F 05/27/20 13:15 06/02/20 14:50 DC 05/28/20 20:04 Multi-Ingredient Ointment (Analgesic [place]) 1 prateek PRN QID PRN TP MUSCLE PAIN 05/27/20 13:15 06/02/20 14:50 DC Al Hydroxide/Mg Hydroxide (Mylanta Plus Xs) 15 ml PRN AFTMEALHC PRN PO DYSPEPSIA 05/27/20 13:15 06/02/20 14:50 DC Magnesium Hydroxide (Milk Of Magnesia) 2,400 mg PRN QHS PRN PO CONSTIPATION 05/27/20 13:15 06/02/20 14:50 DC Nicotine (Nicoderm Cq 7mg Patch) 1 patch DAILY TD 05/28/20 09:00 06/02/20 14:51 DC 05/29/20 08:36 Clopidogrel Bisulfate (Plavix) 75 mg DAILY PO 05/28/20 09:00 06/02/20 14:51 DC 06/02/20 09:47 Gabapentin (Neurontin) 300 mg TID PO 05/27/20 21:00 06/02/20 14:51 DC 06/02/20 13:23 Acetaminophen/ Hydrocodone Bitart (Lortab 7.5/325) 1 tab PRN Q6HRS PRN PO PAIN 05/27/20 20:45 06/02/20 14:51 DC 06/02/20 10:38 Metoprolol Tartrate (Lopressor) 25 mg BID PO 05/27/20 21:00 06/02/20 14:51 DC 06/02/20 10:40 Tamsulosin HCl (Flomax) 0.4 mg DAILY PO 05/28/20 09:00 06/02/20 14:51 DC 06/02/20 09:46 Trazodone HCl (Desyrel) 100 mg QHS PO 05/27/20 21:00 06/02/20 14:51 DC 06/01/20 19:56 Ascorbic Acid (Vitamin C) 500 mg BID PO 05/27/20 21:00 06/02/20 14:51 DC 06/02/20 09:48 Citalopram Hydrobromide (CeleXA) 40 mg DAILY PO 05/28/20 09:00 05/29/20 18:31 DC 05/29/20 08:36 Lisinopril (Prinivil) 40 mg DAILY PO 05/28/20 09:00 06/02/20 14:51 DC 06/02/20 10:41 Lurasidone HCl (Latuda) 20 mg DAILYWBKFT PO 05/28/20 08:00 06/02/20 14:51 DC 06/02/20 09:45 Multivitamins/ Calcium (Thera-M Plus) 1 tab DAILY PO 05/28/20 09:00 06/02/20 14:51 DC 06/02/20 09:46 Valproic Acid (Depakene) 250 mg QAM PO 05/28/20 09:00 05/31/20 07:02 DC 05/30/20 08:54 Sertraline HCl (Zoloft) 50 mg QHS PO 05/29/20 21:00 05/31/20 07:02 DC 05/30/20 19:41 Sertraline HCl (Zoloft) 75 mg QHS PO 05/31/20 21:00 06/02/20 14:51 DC 06/01/20 19:56 Valproic Acid (Depakene) 250 mg BID PO 05/31/20 09:00 06/02/20 14:51 DC 06/02/20 09:45 Ciprofloxacin (Cipro) 500 mg BID PO 06/01/20 21:00 06/02/20 14:51 DC 06/02/20 09:46 Lactobacillus Rhamnosus (Culturelle) 1 cap BID PO 06/02/20 21:00 06/02/20 14:51 DC I have reviewed the current psychotropics carefully including drug interactions. Risk benefit ratio favors no change other than as noted in my dictated progress note. Diagnosis: Problems: (1) Major depressive disorder (2) Impulse control disorder (3) Anxiety disorder, unspecified (4) Mild cognitive impairment CHRIS TORRES MD Jun 02, 2020 21:05
--- NOTE | 2020-06-02 22:19 | DS ---
DATE OF DISCHARGE: 06/02/2020 DISCHARGE SUMMARY/PSYCHIATRIC PROGRESS NOTE REASON FOR ADMISSION: Please refer to the admission history for details. Briefly, the patient is a 59-year-old male referred to us from [facility] by Dr. Manuel De Paz, his primary care physician after the patient was sent to the Emergency Room for suicidal thoughts. He had voiced suicidal ideation, wanting to kill himself, but with no plan. Reportedly, he had stated he has been depressed, hopeless, helpless, worthless, does not like where he is living and very distressed due to his multiple medical problems including 5 CVAs. The patient's behaviors were deemed dangerous, unmanageable resulting in this referral. SIGNIFICANT FINDINGS AND CLINICAL COURSE: Following admission, the patient was seen daily individually by myself from a psychiatric standpoint. Medical followup with Dr. Jasso/Dr. Guerrero. The patient remained quite depressed, withdrawn, hopeless and worthless. Adjustments were made in his psychotropics and he seemed to respond to a combination of Zoloft 75 mg a day, Latuda 20 mg a day, Depakene 250 mg b.i.d., valproic acid level was subtherapeutic. Trazodone 100 mg at bedtime and he was also on gabapentin 300 mg t.i.d. Gradually mood appeared to improve. No suicidal ideations were noted. We were still adjusting the Depakote, but his health insurance deemed he did not meet further criteria to be inpatient. He was not suicidal or dangerous in his behaviors and was transitioned back to the alf. REVIEW OF SYSTEMS: Prior to discharge, 06/02/2020, ambulation impaired. No CV, , pulmonary, eye system symptoms on review. MENTAL STATUS EXAM: Reasonably oriented. Speech is difficult to understand due to his CVA. Abstraction fair, computation impaired, language function intact, attention span short. Mood and affect is improved. DISCHARGE DIET: Honey thickened liquids. He was still aspirating on nectar thickened. CONDITION AT DISCHARGE: Improved. FINAL DIAGNOSES: Major depressive disorder, recurrent, in partial remission; anxiety disorder, unspecified; impulse control disorder, unspecified. Rest unchanged from admission. DISCHARGE MEDICATIONS: Please refer to the MRAD. Outpatient psychiatric and medical followup at the alf. Time for discharge day management greater than 30 minutes. MAN Ervin TORRES MD DR: Kristine JOB#: [id number] / [id number]
== END 2020-06-02 14:50 | DRG 885 ==
LOC: GEROPSY 12:20
PROVIDERS: ADMIT Psychiatry & Neurology Psychiatry; ATTEND Psychiatry & Neurology Psychiatry
DX: F33.41 Major depressive disorder, recurrent, in partial remission (principal); R45.851 Suicidal ideations; N39.0 Urinary tract infection, site not specified; J44.9 Chronic obstructive pulmonary disease, unspecified; I10 Essential (primary) hypertension; N40.0 Benign prostatic hyperplasia without lower urinary tract symptoms; F63.9 Impulse disorder, unspecified; F25.9 Schizoaffective disorder, unspecified; E11.51 Type 2 diabetes mellitus with diabetic peripheral angiopathy without gangrene; F41.9 Anxiety disorder, unspecified; G31.84 Mild cognitive impairment of uncertain or unknown etiology; Z88.5 Allergy status to narcotic agent; Z86.73 Personal history of transient ischemic attack (TIA), and cerebral infarction without residual deficits; Z87.891 Personal history of nicotine dependence; Z79.899 Other long term (current) drug therapy
CPT/HCPCS: 36415; 80053; 80061; 80164; 81001; 82306; 82607; 83036; 83540; 83550; 83735; 84436; 84443; 84480; 85025; 85379; 86592; 87077; 87086; 87186; 93005; 99406; 92610; 97530